=== PATIENT | male | born 1960 | race Two or more races ===

== ENCOUNTER 2016-05-13 04:11 | Emergency (ER) | payer OTHER ==
[~2016-05-13] VITALS: Ht 170.2 cm; Wt 79.4 kg
[2016-05-13 04:11] VITALS: BP 146/91
== END 2016-05-13 05:27 | disposition home or self-care (01) ==
LOC: ER 04:18
DX: T43.621A Poisoning by amphetamines, accidental (unintentional), initial encounter (principal); Y92.89 Other specified places as the place of occurrence of the external cause
CPT/HCPCS: A4606; Z7610